=== PATIENT | male | born 1965 ===

== ENCOUNTER → 2017-12-10 | Outpatient (CLI) | payer BC ==
--- NOTE | 2017-12-10 12:44 | US ---
EXAM DESCRIPTION: Abdomen,Complete CLINICAL HISTORY: 52 years Male, R10.84 COMPARISON: None available. TECHNIQUE: Multiple transverse and longitudinal static sonographic images of the upper abdomen were obtained. FINDINGS: Visualized portions of the pancreas appear normal. The liver demonstrates increased echogenicity with no intrahepatic biliary ductal dilatation. No focal masses are identified sonographically. The gallbladder is well distended with no gross abnormality. No evidence of wall thickening or hyperemia or pericholecystic fluid. The common duct is nondilated and measures 4.3 mm. The right kidney measures 10.9 x 4.2 x 5.7 cm and the left kidney measures 11.2 x 5.8 x 5.2 cm. No hydronephrosis or perinephric fluid collections. The spleen measures 8.3 cm. The visualized abdominal aorta is nonaneurysmal and measures 2.1 cm in the proximal portion and 2.3 cm in the mid and distal portions. Two 4 mm stones are noted in the left kidney. Visualized portions of the inferior vena cava appears normal. 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 Two 4 mm stones are noted in the left kidney. Electronically signed by: Spencer Isaac MD 12/10/2017 12:43 PM CDT
== END ==
LOC: US 08:48
PROVIDERS: ATTEND Nurse Practitioner Family
DX: R10.84 Generalized abdominal pain (principal); K76.0 Fatty (change of) liver, not elsewhere classified; N20.0 Calculus of kidney

== ENCOUNTER 2019-02-07 00:03 | Emergency (ER) | payer BC ==
[2019-02-07] MEDS ORDERED: ETOMIDATE INJECTION 2 MG/ML 20ML VIAL IV ONE (00:04)
[2019-02-07] MEDS ORDERED: NITROGLYCERIN 0.4 MG 25 EA TAB SL ONE ×2 (00:07→00:38)
[2019-02-07] MEDS ORDERED: SODIUM CHLORIDE 0.9% 1000ML 1,000 ML ONE (00:08)
[2019-02-07] MEDS ORDERED: NITROGLYCERIN/D5W IV 250 ML IVS ONE (00:10)
[2019-02-07] MEDS ORDERED: SUCCINYLCHOLINE CHLORIDE 200 MG/10 ML VIAL ONE (00:13)
[2019-02-07] MEDS ORDERED: ASPIRIN TABLET 325 MG TAB ONE (00:18)
[2019-02-07] MEDS ORDERED: ASPIRIN (CHEWABLE) 81 MG TAB ONE (00:18)
[2019-02-07] MEDS ORDERED: ASPIRIN SUPP 600 MG SUP PR ONE ×2 (00:20→00:39)
[2019-02-07] MEDS ORDERED: METOPROLOL TARTRATE INJ 5 MG/5 ML VIAL IV ONE ×2 (00:23→01:51)
[2019-02-07] MEDS ORDERED: HEPARIN PREMIX 500 ML ONE (00:26)
[2019-02-07] MEDS ORDERED: HEPARIN SODIUM (PORCINE) 10,000 UNITS/ML VIAL ONE (00:30)
[2019-02-07] MEDS ORDERED: MORPHINE SULFATE INJ 10 MG/ML VIAL ONE ×2 (00:35→00:55)
[2019-02-07] MEDS ORDERED: ASPIRIN TABLET 325 MG TAB PO ONE (00:38)
[2019-02-07] MEDS ORDERED: HEPARIN PREMIX 25,000 UNITS in PREMIX BAG 1 BAG IVS ONE (00:40)
[2019-02-07] MEDS ORDERED: TENECTEPLASE 50 MG VIAL IV ONE (00:41)
[2019-02-07] MEDS ORDERED: ALTEPLASE 50 MG IVS ONE (00:43)
[2019-02-07] MEDS ORDERED: HEPARIN PREMIX 25,000 UNITS in PREMIX BAG 1 BAG IVS SCH (00:45)
[2019-02-07] MEDS ORDERED: NOREPINEPHRINE BITARTRATE 4 MG/4 ML VIAL IVPB ONE (00:46)
[2019-02-07] MEDS ORDERED: DEXTROSE 5% 250ML 250 ML ONE (00:47)
--- NOTE | 2019-02-07 00:49 | ED.PDOC ---
History of Present Illness - General Chief Complaint: Respiratory Problem Time Seen by Provider: 02/07/19 00:38 Source: patient, family Additional Information: patient is a 53-year-old male who presents to the ED in severe respiratory distress. Patient's history is unclear given the degree of respiratory distress patient is an and patient's is not a good historian. He has had shortness of breath for the past 2 days gradually getting worse. Patient denies history of CHF or OH. His indicates that he had a cardiac catheterization done approximately 6 years ago and does not have any stents and did not have her procedure from that patient denies being on blood thinner. Patient indicates he has chest pressure but is unable to quantify the amount due to his respiratory distress history is otherwise unknown. - History of Present Illness Allergies/Adverse Reactions: Allergies NO KNOWN ALLERGY Allergy (Verified 05/16/16 11:43) Home Medications: Ambulatory Orders Telmisartan-Hydrochlorothiazid [Micardis Hct 80-12.5 mg] 1 tbls PO DAILY 05/16/16 Aspirin 325 mg PO DAILY #0 tab 05/17/16 Atorvastatin Calcium [Lipitor] 40 mg PO DAILY #30 tab 05/17/16 Metoprolol Tartrate 25 mg PO BID #30 tab 05/17/16 Nitroglycerin 0.4 mg Tab [Nitrostat] 0.4 mg SL Q5MIN #1 bttl 05/17/16 Omeprazole [Prilosec Cap] 20 mg PO ACBK #30 cap 05/17/16 Thyroid 200 mcg PO DAILY 05/17/16 Review of Systems - Review of Systems Unable to Obtain Due To: condition - unable to determine due to severe respiratory distress Past Medical History (General) - Patient Medical History Hx Seizures: No Hx Stroke: No Hx Asthma: No Hx of COPD: No Hx Cardiac Disorders: No Hx Congestive Heart Failure: No Hx Pacemaker: No Hx Hypertension: No Hx Thyroid Disease: Yes Hx Diabetes: No Hx Gastroesophageal Reflux: No Hx Cancer: No Hx of HIV: No Hx Hepatitis C: No Hx MRSA: No - Vaccination History Hx Tetanus, Diphtheria Vaccination: No Hx Pneumococcal Vaccination: No - Social History Hx Tobacco Use: Yes Hx Chewing Tobacco Use: No Hx Alcohol Use: No Hx Substance Use: No Hx Substance Use Treatment: No Hx Depression: No Hx Physical Abuse: No Hx Emotional Abuse: No Hx Suspected Abuse: No Family Medical History - Family History Grandparents Family History: Unknown Physical Exam - Physical Exam General Appearance: Alert, Anxious, Obvious distress - severe, Ill Appearing, Obese Eyes, Ears, Nose, Throat Exam: PERRL/EOMI Neck: non-tender, other - Positive JVD Respiratory: respiratory distress - Severe, accessory muscle use, crackles Cardiovascular/Chest: no murmur, tachycardia, other - distant heart sounds, unable to appreciate a gallop or S3. 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 Patient was in severe respiratory distress, acutely diaphoretic, confused. staff was unable to initially obtain IV access and I placed an IO line in patient's left proximal humerus with good results. Patient's lungs sound were coarse with crackles and the presumptive diagnosis was flash pulmonary edema. Once we were able to obtain a blood pressure patient's systolic was noted to be in the 250s. 2 sublingual nitroglycerin given immediately and a nitroglycerin drip was started. EKG was obtained which showed profound ST elevation anteriorly and laterally. Rectal aspirin was given and patient was started on heparin protocol. Because cardiology is not available on site TNKase was ordered to address patient's STEMI. We ordered [facility] helicopter for emergent transport to [place] at that time. I discussed the case with supervisor fusing room Dr. West who agreed with heparin and aspirin and TNKase and he indicated that he would have the cardiac catheterization lab ready upon arrival. At this time patient is breathing much more comfortable and his blood pressure has come down considerably on the nitroglycerin drip. His pressure had bottomed out in the high 80s and the drip was stopped and pressure is now at 104 systolic. He is mentating well and is no longer in severe distress. Patient was placed on BiPAP on arrival and he continues to do well on BiPAP. His initial O2 sat on arrival was very low in the 60s according to the monitor but came up readily once patient was transitioned from facemask oxygen to BiPAP. 02/07/19 01:04 Pt remains stable at this time, his systolic is 104. Patient is unable to tolerate coming off of the BiPAP to facemask. Air transport indicates that there is a barometric sensory misfunction on the aircraft which is artificially reading low and triggering out of flight parameters. They are addressing this issue and we expect air flight transportation shortly. Patient is unable to be transported via ambulance to [facility] without being intubated; EMS crew is unable to take a patient on BiPAP. Given that patient's respiratory symptoms zhao ve markedly improved I do not want to have to intubate this gentleman if I do not need to, and we will give him a trial of CPAP. A levophed drip is at the ready in case patient should need pressor support en route. 02/07/19 01:41 Patient's blood pressure had trended down to the 70s and a liter saline drip was started and he is holding steady with a systolic of 105. A central line was successfully placed in patient's left femoral vein. I have received word that [facility] will not be able to transport patient. Will transition patient from BiPAP to CPAP which EMS indicates that they can transport on and if successful we'll transport patient now. If unsuccessful will need to intubate patient for the hour-long ambulance ride to [place]. Patient's second and third EKG show continued extreme ST segment elevation anteriorly and laterally despite tPA. His troponin is elevated. 02/07/19 01:54 Patient is doing very well on CPAP and we will now transport him via ambulance to [place]. His systolic is 124, he is awake alert and oriented 3, able to hold a conversation and feeling much better. Patient is medically stable for transfer at this time. - Results/Orders Results/Orders: 02/07/19 01:00 Nitroglycerin/D5w IV 50,000 mcg Premix Bottle 1 bottle IVS PRN Norepinephrine Bitartrate [Levophed] 4 mg Dextrose 5% 250Ml [D5W 250ml] 250 ml IVPB PRN 02/07/19 01:10 Catheter:Wu QSHIFT 02/07/19 01:11 URINALYSIS Stat Laboratory Results WBC 18.3 K/mm3 (4.8-10.8) H 02/07/19 00:37 RBC 6.49 M/mm3 (4.70-6.10) H 02/07/19 00:37 Hgb 18.6 gm/dL (14.0-18.0) H 02/07/19 00:37 Hct 56.7 % (42.0-52.0) H 02/07/19 00:37 MCV 87.3 fl (80.0-94.0) 02/07/19 00:37 MCH 28.6 pg (27.0-31.0) 02/07/19 00:37 MCHC 32.7 g/dL (33.0-37.0) L 02/07/19 00:37 RDW 14.3 % (11.5-14.5) 02/07/19 00:37 Plt Count 598 K/mm3 (130-400) H 02/07/19 00:37 MPV 8.0 fl (7.40-10.4) 02/07/19 00:37 Absolute Neuts (auto) 8.80 K/uL (1.8-6.8) H 02/07/19 00:37 Absolute Lymphs (auto) 4.40 K/uL (1.0-3.4) H 02/07/19 00:37 Absolute Monos (auto) 4.10 K/uL (0.2-0.8) H 02/07/19 00:37 Absolute Eos (auto) 0.90 K/uL (0.0-0.4) H 02/07/19 00:37 Absolute Basos (auto) 0.00 K/uL (0.0-0.1) 02/07/19 00:37 Neutrophils % 48.3 % (42.0-78.0) 02/07/19 00:37 Neutrophils % (Manual) 30.0 % (42.0-78.0) L 02/07/19 00:45 Lymphocytes % 24.1 % (20.0-50.0) 02/07/19 00:37 Lymphocytes % (Manual) 55.0 % 02/07/19 00:45 Monocytes % 22.4 % (2.0-9.0) H 02/07/19 00:37 Monocytes % (Manual) 11.0 % 02/07/19 00:45 Eosinophils % 5.2 % (1.0-5.0) H 02/07/19 00:37 Basophils % 0.0 % (0.0-2.0) 02/07/19 00:37 Band Neutrophils 3.0 % (0-2) H 02/07/19 00:45 Eosinophils 1.0 % 02/07/19 00:45 Platelet Estimate Increased (NORMAL) 02/07/19 00:45 Polychromasia 1+ 02/07/19 00:45 Anisocytosis 1+ 02/07/19 00:45 PT 9.4 SECONDS (9.0-10.9) 02/07/19 00:37 INR 0.94 (0.9-1.15) 02/07/19 00:37 PTT (SP) 27.0 SECONDS (21.8-31.6) 02/07/19 00:37 Sodium 141 mmol/L (135-145) 02/07/19 00:37 Potassium 3.0 mmol/L (3.6-5.0) L 02/07/19 00:37 Chloride 104 mmol/L (101-111) 02/07/19 00:37 Carbon Dioxide 22 mmol/L (21-31) 02/07/19 00:37 Anion Gap 18.0 (12-18) 02/07/19 00:37 BUN 13 mg/dL (7-18) 02/07/19 00:37 Creatinine 1.25 mg/dL (0.6-1.3) 02/07/19 00:37 BUN/Creatinine Ratio 10.4 (10-20) 02/07/19 00:37 Random Glucose 205 mg/dL (70-105) H 02/07/19 00:37 Serum Osmolality 287.3 mOsm/L (275-295) 02/07/19 00:37 Calcium 8.7 mg/dL (8.4-10.2) 02/07/19 00:37 Magnesium 2.4 mg/dL (1.8-2.5) 02/07/19 00:37 Creatine Kinase 377 IU/L (38-174) H* 02/07/19 00:37 CK-MB (CK-2) 7.0 ng/mL (0.0-4.4) H* 02/07/19 00:37 CK-MB (CK-2) % 1.86 % (0.0-3.5) 02/07/19 00:37 Troponin I 0.11 ng/mL (0.01-0.05) H* 02/07/19 00:37 B-Natriuretic Peptide 128.0 pg/ml (0-100) H 02/07/19 00:38 - EKG/XRAY/CT EKG: Tachy - Anterior lateral, ST elevation Procedures - Central Line Left Femoral vein Central Line Lumen: triple Central Line Procedure Prep: betadine prep Anesthesia: Lidocaine cc's of anesthesia: 4 Complications: none Central Line Post Position: sutured, good blood return Departure - Departure Clinical Impression: STEMI (ST elevation myocardial infarction) Time of Disposition: 02:01 Disposition: Transfer to Hospital Condition: Serious Departure Forms: ED Discharge - Pt. Copy, Patient Portal Self Enrollment Home Medications: Ambulatory Orders Telmisartan-Hydrochlorothiazid [Micardis Hct 80-12.5 mg] 1 tbls PO DAILY 05/16/16 Aspirin 325 mg PO DAILY #0 tab 05/17/16 Atorvastatin Calcium [Lipitor] 40 mg PO DAILY #30 tab 05/17/16 Metoprolol Tartrate 25 mg PO BID #30 tab 05/17/16 Nitroglycerin 0.4 mg Tab [Nitrostat] 0.4 mg SL Q5MIN #1 bttl 05/17/16 Omeprazole [Prilosec Cap] 20 mg PO ACBK #30 cap 05/17/16 Thyroid 200 mcg PO DAILY 05/17/16 Critical Care Note - Critical Care Note Total Time (mins): 85 Comments: Critical care time does not include separately billable procedures. Transfer to Outside Facility - Transfer Information Accepting Provider:: Dr. 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
[2019-02-07] MEDS ORDERED: MORPHINE SULFATE INJ 10 MG/ML VIAL IV ONE (00:56)
[2019-02-07] MEDS ORDERED: NITROGLYCERIN/D5W IV 50,000 MCG in PREMIX BOTTLE 1 BOTTLE IVS SCH (01:00)
[2019-02-07] MEDS ORDERED: NOREPINEPHRINE BITARTRATE 4 MG in DEXTROSE 5% 250ML 250 ML IVPB SCH ×2 (01:00→01:30)
--- NOTE | 2019-02-07 01:07 | RAD ---
EXAM DESCRIPTION: XR Chest, 1 View CLINICAL HISTORY: 53 years Male sob TECHNIQUE: One view of the chest. COMPARISON: Comparison is made to the prior examination dated 05/16/2016. FINDINGS: There are hazy confluent airspace infiltrates throughout both lungs with relative sparing of the lung apices, particularly on the left. Normal cardiomediastinal silhouette. No definite pleural effusion or pneumothorax. No acute osseous abnormality. IMPRESSION: Hazy confluent airspace infiltrates throughout the majority of both lungs, infection and/or pulmonary edema. The heart is normal in size. Electronically signed by: Chsaity Maddox MD 02/07/2019 1:06 AM CDT
[2019-02-07] MEDS ORDERED: FUROSEMIDE INJ 20 MG/2 ML VIAL ONE (01:10)
[2019-02-07] MEDS ORDERED: FUROSEMIDE INJ 40 MG/4 ML VIAL IV ONE (01:11)
[2019-02-07 01:30] VITALS: TEMP 98.1
[2019-02-07] MEDS ORDERED: HEPARIN SODIUM (PORCINE) 5,000 U/ML VIAL IV ONE (01:46)
[2019-02-07 02:35] VITALS: BP 135/94; O2SAT 96
== END 2019-02-07 02:15 | disposition short-term general hospital (02) ==
LOC: ER 00:03
DX: I21.3 ST elevation (STEMI) myocardial infarction of unspecified site (principal); R06.03 Acute respiratory distress; R07.9 Chest pain, unspecified; Z87.891 Personal history of nicotine dependence; Z79.82 Long term (current) use of aspirin; Z79.899 Other long term (current) drug therapy
CPT/HCPCS: 71045; 80048; 82550; 82553; 83880; 84484; 85025; 85610; 85730; 93005; 94660; J0330; J1644; J1940; J2060; J2270; J3101; J7030; J7060

== ENCOUNTER 2019-02-18 17:31 | Emergency (ER) | payer BC ==
[2019-02-18] MEDS ORDERED: SODIUM CHLORIDE 0.9% (FLUSH) 10 ML SYG IV PRN (18:14)
[2019-02-18] MEDS ORDERED: methylPREDNISolone SODIUM SUC 125 MG/2 ML VIAL IV ONE (18:15)
[2019-02-18] MEDS ORDERED: diphenhydrAMINE HCL 50 MG/ML VIAL IV ONE (18:17)
--- NOTE | 2019-02-18 18:27 | ED.PDOC ---
History of Present Illness - General Chief Complaint: General Stated Complaint: Itching, possible allergic reaction Time Seen by Provider: 02/18/19 18:13 - History of Present Illness Initial Comments: Pt with mi approximately 10 days ago. Pt sent to [facility] for an emergent PCI. Pt came home last pm. Pt started on Augmentin last night for a UTI. Pt noted itching after the initial dose and it worsened today a couple of hours after taking his abx today. Pt given Benadryl at home with improvement. Pt also c/o scrotal swelling and pain. Pt denies fever/chills. +Dysuria. +SOB and a feeling of choking. Pt denies cp/nausea or vomiting. Allergies/Adverse Reactions: Allergies NO KNOWN ALLERGY Allergy (Verified 05/16/16 11:43) Home Medications: Ambulatory Orders Aspirin 325 mg PO DAILY #0 tab 05/17/16 Thyroid 200 mcg PO DAILY 05/17/16 Amoxicillin 875 mg PO BID 02/18/19 Atorvastatin Calcium [Lipitor] 80 mg PO DAILY 02/18/19 Buspirone HCl 10 mg PO DAILY 02/18/19 Carvedilol 6.25 mg PO BIDFD 02/18/19 Cefdinir 300 mg PO BID 5 Days #10 capsule 02/18/19 Furosemide 20 mg PO DAILY 02/18/19 Lisinopril [Prinivil] 10 mg PO DAILY 02/18/19 Methylprednisolone [Medrol Dose Nilo] 4 mg PO DAILY 6 Days #21 tab 02/18/19 Spironolactone 25 mg PO DAILY 02/18/19 Ticagrelor [Brilinta] 90 mg PO BID 02/18/19 Review of Systems - Review of Systems Constitutional: Denies: chills, fever EENTM: States: throat swelling. Denies: mouth pain, mouth swelling Respiratory: States: short of breath. Denies: stridor, wheezing Cardiology: Denies: chest pain, palpitations Gastrointestinal/Abdominal: Denies: abdominal pain, nausea, vomiting Genitourinary: States: dysuria, frequency, pain - swelling of scrotum. Denies: hematuria Musculoskeletal: States: no symptoms reported Skin: States: rash, other - itching Neurological: States: no symptoms reported Endocrine: States: no symptoms reported Hematologic/Lymphatic: States: easy bruising All other Systems: Reviewed and Negative Past Medical History (General) - Patient Medical History Hx Seizures: No Hx Stroke: No Hx Asthma: No Hx of COPD: No Hx Cardiac Disorders: Yes - Dyslipidemia Hx Congestive Heart Failure: No Hx Pacemaker: No Hx Hypertension: Yes Hx Thyroid Disease: Yes Hx Diabetes: No Hx Gastroesophageal Reflux: No Hx Cancer: No Hx of HIV: No Hx Hepatitis C: No Hx MRSA: No Surgical History: other - Vaccination History Hx Tetanus, Diphtheria Vaccination: No Hx Influenza Vaccination: No Hx Pneumococcal Vaccination: No - Social History Hx Tobacco Use: Yes - Quit 2019 Hx Chewing Tobacco Use: No Hx Alcohol Use: No Hx Substance Use: No Hx Substance Use Treatment: No Hx Depression: No Hx Physical Abuse: No Hx Emotional Abuse: No Hx Suspected Abuse: No Family Medical History - Family History Grandparents Family History: Unknown Physical Exam - Physical Exam General Appearance: Alert, Anxious, Well Developed, Well Groomed, Well Hydrated, Well Nourished Eye Exam: bilateral normal Ears, Nose, Throat: hearing grossly normal, normal ENT inspection, normal pharynx Neck: non-tender, full range of motion, supple, normal inspection, other - No stridor Respiratory: chest non-tender, lungs clear, normal breath sounds, no respiratory distress, no accessory muscle use, respiratory distress Cardiovascular/Chest: normal peripheral pulses, regular rate, rhythm, no edema, no gallop, no JVD Peripheral Pulses: radial,right: 2+, radial,left: 2+, dorsalis pedis,right: 2+, dorsalis pedis,left: 2+, posterior tibialis,right: 2+, posterior tibialis,left: 2+ Gastrointestinal/Abdominal: normal bowel sounds, non tender, soft, no organome dez Back Exam: normal inspection, no CVA tenderness, no vertebral tenderness Extremity: normal range of motion, non-tender, normal inspection 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 Pt with slight bleeding from left groin at site of the PCI Progress - Progress Progress: 02/18/190 Pt's symptoms resolved after iv benadryl and steroids. The sob/chest tightness also went away. 02/18/19 23:02 Repeat labs show Troponin and CPK dropping over the last 3 hours. I suspect the elevated troponin/cpk were from his original CO. I believe the sob/itching is a allergy to the Augmentin. Plan d/c home on Cefdinir and steroids. I have d/w pt and family and they voice understanding and agreement with the plan of care. Todd Salazar M.D. #[id number] - Results/Orders Results/Orders: 02/18/19 18:14 IV Care:Saline Lock per Protoc QSHIFT Telemetry ONCE CARDIAC PANEL,ER Stat Sodium Chloride 0.9% (Flush) [Saline Flush Syringe] 3 ml IV PRN PRN 02/18/19 18:15 EKG STAT 02/18/19 19:15 UA [URINALYSIS] Stat 02/19/19 09:00 Pulse Ox Daily Laboratory Results - last 24 hr 02/18/19 18:14 WBC 16.6 H RBC 3.91 L Hgb 10.9 L Hct 33.0 L MCV 84.3 MCH 27.8 MCHC 33.0 RDW 14.0 MPV 7.1 L Absolute Neuts (auto) 12.20 H Absolute Lymphs (auto) 2.50 Absolute Monos (auto) 1.10 H Absolute Eos (auto) 0.60 H Absolute Basos (auto) 0.20 H Neutrophils % 73.3 Lymphocytes % 15.3 L Monocytes % 6.6 Eosinophils % 3.5 Basophils % 1.3 Sodium 133 L Potassium 3.7 Chloride 100 L Carbon Dioxide 22 Anion Gap 14.7 BUN 22 H Creatinine 1.08 BUN/Creatinine Ratio 20.4 H Random Glucose 103 Serum Osmolality 270.0 L Calcium 8.8 Magnesium 2.1 Creatine Kinase 898 H* CK-MB (CK-2) 1.8 CK-MB (CK-2) % Not Reportable Troponin I 0.36 H* 02/18/19 18:14 IV Care:Saline Lock per Protoc QSHIFT Telemetry ONCE Sodium Chloride 0.9% (Flush) [Saline Flush Syringe] 3 ml IV PRN PRN 02/18/19 18:15 EKG STAT 02/18/19 21:33 CARDIAC ENZYME GROUP Stat 02/19/19 09:00 Pulse Ox Daily Laboratory Results - last 24 hr 02/18/19 02/18/19 02/18/19 18:14 19:15 21:33 WBC 16.6 H RBC 3.91 L Hgb 10.9 L Hct 33.0 L MCV 84.3 MCH 27.8 MCHC 33.0 RDW 14.0 Plt Count 1082 H MPV 7.1 L Absolute Neuts (auto) 12.20 H Absolute Lymphs (auto) 2.50 Absolute Monos (auto) 1.10 H Absolute Eos (auto) 0.60 H Absolute Basos (auto) 0.20 H Neutrophils % 73.3 Lymphocytes % 15.3 L Monocytes % 6.6 Eosinophils % 3.5 Basophils % 1.3 PT 10.3 INR 1.03 PTT (SP) 31.5 Sodium 133 L Potassium 3.7 Chloride 100 L Carbon Dioxide 22 Anion Gap 14.7 BUN 22 H Creatinine 1.08 BUN/Creatinine Ratio 20.4 H Random Glucose 103 Serum Osmolality 270.0 L Calcium 8.8 Magnesium 2.1 Creatine Kinase 898 H* 758 H* CK-MB (CK-2) 1.8 1.7 CK-MB (CK-2) % Not Reportable Troponin I 0.36 H* 0.33 H* Urine Color Yellow Urine Appearance Clear Urine pH 5.5 Ur Specific [place] 1.020 Urine Protein 100 H Urine Glucose (UA) Negative Urine Ketones Negative Urine Blood Trace-lysed H Urine Nitrite Negative Urine Bilirubin Negative Urine Urobilinogen 0.2 Ur Leukocyte Esterase Negative Urine RBC 1-3 Urine WBC 0 Ur Epithelial Cells 0-1 Urine Bacteria Rare Hyaline Casts 0-1 Urine Mucus Trace - EKG/XRAY/CT EKG: Abnormal Q waves Comments: NSR@74bmp, NAD, LAE, lrg Q waves V1-3, septal infarct, recent, abnormal ekg Xray Comments: CXR wnl, no acute pulmonary disease. Departure - Departure Clinical Impression: Allergic reaction caused by a drug, Elevated troponin I level Time of Disposition: 23:05 Disposition: Discharge to Home or Self Care Condition: Good Departure Forms: ED Discharge - Pt. Copy, Patient Portal Self Enrollment Instructions: Adverse Drug Reactions, Adult (DC), Allergy to Penicillins, Allergy Skin Testing Prescriptions: Cefdinir 300 mg PO BID 5 Days #10 capsule Methylprednisolone [Medrol Dose Nilo] 4 mg PO DAILY 6 Days #21 tab Home Medications: Ambulatory Orders Aspirin 325 mg PO DAILY #0 tab 05/17/16 Thyroid 200 mcg PO DAILY 05/17/16 Amoxicillin 875 mg PO BID 02/18/19 Atorvastatin Calcium [Lipitor] 80 mg PO DAILY 02/18/19 Buspirone HCl 10 mg PO DAILY 02/18/19 Carvedilol 6.25 mg PO BIDFD 02/18/19 Cefdinir 300 mg PO BID 5 Days #10 capsule 02/18/19 Furosemide 20 mg PO DAILY 02/18/19 Lisinopril [Prinivil] 10 mg PO DAILY 02/18/19 Methylprednisolone [Medrol Dose Nilo] 4 mg PO DAILY 6 Days #21 tab 02/18/19 Spironolactone 25 mg PO DAILY 02/18/19 Ticagrelor [Brilinta] 90 mg PO BID 02/18/19
--- NOTE | 2019-02-18 18:34 | RAD ---
EXAM: Chest,1 View CLINICAL INDICATION: Shortness of breath COMPARISON: 02/07/2019 FINDINGS: A single view of the chest was obtained. The heart size is normal. The pulmonary vascularity is unremarkable. The lungs are clear. There is no consolidation, infiltrate, pleural effusion, or pneumothorax. IMPRESSION: No evidence of active pulmonary disease. Electronically signed by: Donnie Huang MD 02/18/2019 6:32 PM CDT
[2019-02-18 23:05] VITALS: BP 154/112; O2SAT 98
[2019-02-18 23:18] VITALS: TEMP 97.6
== END 2019-02-18 23:11 | disposition home or self-care (01) ==
LOC: ER 17:31
DX: L29.9 Pruritus, unspecified (principal); T36.0X5A Adverse effect of penicillins, initial encounter; N50.89 Other specified disorders of the male genital organs; N50.82 Scrotal pain; R79.89 Other specified abnormal findings of blood chemistry; R06.02 Shortness of breath; N39.0 Urinary tract infection, site not specified; R94.31 Abnormal electrocardiogram [ECG] [EKG]; E78.5 Hyperlipidemia, unspecified; I10 Essential (primary) hypertension; E07.9 Disorder of thyroid, unspecified; Z79.82 Long term (current) use of aspirin; Z79.899 Other long term (current) drug therapy; Z87.891 Personal history of nicotine dependence
CPT/HCPCS: 71045; 80048; 81001; 82550; 82553; 84484; 85025; 85610; 85730; 93005; J1200; J2930

== ENCOUNTER 2019-12-02 | Emergency (ER) | payer BC ==
--- NOTE | 2019-12-02 06:38 | ED.PDOC ---
History of Present Illness - General Chief Complaint: ENT Problem Stated Complaint: my nose is bleeding Time Seen by Provider: 12/02/19 06:35 Source: patient, RN notes reviewed, Vital Signs reviewed Additional Information: patient 54-year-old male patient, presents to the ER with a urinary nasal bleeding, patient is on blood thinner due to his cervical artery disease after having a heart attack has a history of hyper tension hyperlipidemia and thyroid disease, He denies any recent trauma does not any distress no evidence of airway compromise Does not smoke does not drink No history of alcohol cigarettes or drugs Daughter is translating - History of Present Illness Timing/Duration: abrupt EENT Location: nose Prearrival Treatment: squeezing nostrils Improving Factors: nothing Worsening Factors: nothing Associated Symptoms: denies symptoms Allergies/Adverse Reactions: Allergies NO KNOWN ALLERGY Allergy (Verified 05/16/16 11:43) Home Medications: Ambulatory Orders Aspirin 325 mg PO DAILY #0 tab 05/17/16 Thyroid 200 mcg PO DAILY 05/17/16 Atorvastatin Calcium [Lipitor] 80 mg PO DAILY 02/18/19 Carvedilol 6.25 mg PO BIDFD 02/18/19 Methylprednisolone [Medrol Dose Nilo] 4 mg PO DAILY 6 Days #21 tab 02/18/19 Spironolactone 25 mg PO DAILY 02/18/19 Ticagrelor [Brilinta] 90 mg PO BID 02/18/19 Allopurinol 300 mg PO 12/02/19 Levothyroxine Sodium [Euthyrox] 150 mcg PO 12/02/19 Losartan Potassium 50 mg PO 12/02/19 Review of Systems - Review of Systems Constitutional: States: no symptoms reported EENTM: States: no symptoms reported Respiratory: States: no symptoms reported Cardiology: States: no symptoms reported Gastrointestinal/Abdominal: States: no symptoms reported Genitourinary: States: no symptoms reported Musculoskeletal: States: no symptoms reported Skin: States: no symptoms reported Neurological: States: no symptoms reported Endocrine: States: no symptoms reported Hematologic/Lymphatic: States: no symptoms reported Past Medical History (General) - Patient Medical History Hx Seizures: No Hx Stroke: No Hx Asthma: No Hx of COPD: No Hx Cardiac Disorders: Yes - Dyslipidemia Hx Congestive Heart Failure: No Hx Pacemaker: No Hx Hypertension: Yes Hx Thyroid Disease: Yes Hx Diabetes: No Hx Gastroesophageal Reflux: No Hx Cancer: No Hx of HIV: No Hx Hepatitis C: No Hx MRSA: No - Vaccination History Hx Tetanus, Diphtheria Vaccination: No Hx Influenza Vaccination: No Hx Pneumococcal Vaccination: No - Social History Hx Tobacco Use: Yes - Quit 2019 Hx Chewing Tobacco Use: No Hx Alcohol Use: No Hx Substance Use: No Hx Substance Use Treatment: No Hx Depression: No Hx Physical Abuse: No Hx Emotional Abuse: No Hx Suspected Abuse: No Family Medical History - Family History Grandparents Family History: Unknown Physical Exam - Physical Exam General Appearance: Alert, Well Developed, Well Groomed, Well Hydrated, Well Nourished Eye Exam: bilateral normal Ear Exam: bilateral ear: auricle normal Nasal Exam: other - Active bleeding coming from the right nostril Neck: non-tender Cardiovascular/Respiratory: regular rate, rhythm, no M/R/G, normal peripheral pulses, no JVD, normal breath sounds Abdominal Exam: non-tender, no organomegaly 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 Patient will be referred to a early breastfeeding care specialist, I told the daughter and the patient that he needs to have the Rhino Rocket inserted for at least 48 hours no more than because he went to minimize the risk of infection Patient was told to avoid blowing off his nose12/02/19 06:4 12/02/19 06:48 I suspect the patient blood pressure was the cause of the nosebleed, patient is on Brilinta which we know does not affect PT and INR Procedures - Additional Procedures Progress: A Rhino Rocket 7.5 cm mostly centered in the right nostril with any without any complications, patient tolerated the procedure well, and the bleeding stopped Departure - Departure Clinical Impression: Epistaxis Disposition: Discharge to Home or Self Care Condition: Fair Departure Forms: ED Discharge - Pt. Copy, Patient Portal Self Enrollment Instructions: Nosebleeds (DC) Referrals: SHIRA RO IV, AGER TENDER [Primary Care Provider] - 1-2 Weeks Home Medications: Ambulatory Orders Aspirin 325 mg PO DAILY #0 tab 05/17/16 Thyroid 200 mcg PO DAILY 05/17/16 Atorvastatin Calcium [Lipitor] 80 mg PO DAILY 02/18/19 Carvedilol 6.25 mg PO BIDFD 02/18/19 Methylprednisolone [Medrol Dose Nilo] 4 mg PO DAILY 6 Days #21 tab 02/18/19 Spironolactone 25 mg PO DAILY 02/18/19 Ticagrelor [Brilinta] 90 mg PO BID 02/18/19 Allopurinol 300 mg PO 12/02/19 Levothyroxine Sodium [Euthyrox] 150 mcg PO 12/02/19 Losartan Potassium 50 mg PO 12/02/19 Additional Instructions: Will provide your information Follow-up with ENT
== END 2019-12-02 06:54 | disposition home or self-care (01) ==

== ENCOUNTER 2020-03-03 06:04 | Emergency (ER) | payer BC ==
[2020-03-03] MEDS ORDERED: OXYMETAZOLINE NASAL SPRAY 15 ML BTTL ONE (06:29)
[2020-03-03] MEDS ORDERED: OXYMETAZOLINE NASAL SPRAY 15 ML BTTL BNAS PRN (06:32)
--- NOTE | 2020-03-03 06:38 | ED.PDOC ---
History of Present Illness - General Source: patient, RN notes reviewed, Vital Signs reviewed, family - History of Present Illness Initial Comments: This is a 54-year-old male with history of CAD, on Brilinta, presenting to the emergency department for nosebleed that began around 5:15 this morning. He also had an episode of bleeding yesterday that he was able to control with pressure. He was seen in the emergency room in November, for nosebleeds and had to have his nose packed at that time. There have been no new changes in his medications. No injury to the nose. <Carlitos Hood - Last Filed: 03/03/20 07:04> <Devika Rivero - Last Filed: 03/03/20 07:48> - General Chief Complaint: ENT Problem Stated Complaint: nose bleeding since 514 Time Seen by Provider: 03/03/20 06:32 - History of Present Illness Allergies/Adverse Reactions: Allergies NO KNOWN ALLERGY Allergy (Verified 03/03/20 06:16) Home Medications: Ambulatory Orders Aspirin 325 mg PO DAILY #0 tab 05/17/16 Thyroid 200 mcg PO DAILY 05/17/16 Atorvastatin Calcium [Lipitor] 80 mg PO DAILY 02/18/19 Carvedilol 6.25 mg PO BIDFD 02/18/19 Methylprednisolone [Medrol Dose Nilo] 4 mg PO DAILY 6 Days #21 tab 02/18/19 Spironolactone 25 mg PO DAILY 02/18/19 Ticagrelor [Brilinta] 90 mg PO BID 02/18/19 Allopurinol 300 mg PO 12/02/19 Levothyroxine Sodium [Euthyrox] 150 mcg PO 12/02/19 Losartan Potassium 50 mg PO 12/02/19 Review of Systems - Review of Systems Constitutional: Denies: chills, fever EENTM: States: other - Nosebleed right naris. Denies: eye pain, tearing, ear pain, ear discharge, nose congestion, throat pain, mouth pain Respiratory: Denies: cough, short of breath Cardiology: Denies: chest pain, edema Gastrointestinal/Abdominal: Denies: abdominal pain, diarrhea, nausea, vomiting Skin: Denies: lesions, rash <Carlitos Hood - Last Filed: 03/03/20 07:04> Past Medical History (General) - Patient Medical History Hx Seizures: No Hx Stroke: No Hx Dementia: No Hx Asthma: No Hx of COPD: No Hx Cardiac Disorders: Yes - Dyslipidemia, hx [place], cardiac stents Hx Congestive Heart Failure: No Hx Pacemaker: No Hx Hypertension: Yes Hx Thyroid Disease: Yes Hx Diabetes: No Hx Gastroesophageal Reflux: No Hx Renal Disease: No Hx Cancer: No Hx of HIV: No Hx Hepatitis C: No Hx MRSA: No Surgical History: noncontributory - Vaccination History Hx Tetanus, Diphtheria Vaccination: No Hx Influenza Vaccination: No Hx Pneumococcal Vaccination: No - Social History Hx Tobacco Use: Yes - Quit 2019 Hx Chewing Tobacco Use: No Hx Alcohol Use: No Hx Substance Use: No Hx Substance Use Treatment: No Hx Depression: No Hx Physical Abuse: No Hx Emotional Abuse: No Hx Suspected Abuse: No <SanaCarlitos - Last Filed: 03/03/20 07:04> Family Medical History - Family History Grandparents Family History: Unknown <Carlitos Hood - Last Filed: 03/03/20 07:04> Physical Exam - Physical Exam General Appearance: Alert, Comfortable Eye Exam: bilateral normal Ear Exam: bilateral ear: TM normal Nasal Exam: dried blood - Right naris Throat Exam: normal mouth inspection, pharynx normal Neck: non-tender, full range of motion Cardiovascular/Respiratory: regular rate, rhythm, no M/R/G, normal peripheral pulses Abdominal Exam: non-tender Neurologic: no motor/sensory deficits, alert, normal mood/affect, oriented x 3 Skin Exam: normal color, warm/dry <SanaCarlitos - Last Filed: 03/03/20 07:04> Progress - Progress Progress: 03/03/20 07:04 History, physical discussed with Dr. Rivero. She will assume care from this time forward. <SanaCarlitos - Last Filed: 03/03/20 07:04> - Results/Orders Results/Orders: 03/03/20 06:30 EKG STAT 03/03/20 06:32 Oxymetazoline Nasal [place] [Afrin Nasal [place]] 2 spray BNAS BID PRN Laboratory Results WBC 7.9 K/mm3 (4.8-10.8) 03/03/20 06:22 RBC 5.30 M/mm3 (4.70-6.10) 03/03/20 06:22 Hgb 15.7 gm/dL (14.0-18.0) 03/03/20 06:22 Hct 45.2 % (42.0-52.0) 03/03/20 06:22 MCV 85.3 fl (80.0-94.0) 03/03/20 06:22 MCH 29.7 pg (27.0-31.0) 03/03/20 06:22 MCHC 34.8 g/dL (33.0-37.0) 03/03/20 06:22 RDW 14.5 % (11.5-14.5) 03/03/20 06:22 Plt Count 354 K/mm3 (130-400) 03/03/20 06:22 MPV 6.8 fl (7.40-10.4) L 03/03/20 06:22 Absolute Neuts (auto) 5.20 K/uL (1.8-6.8) 03/03/20 06:22 Absolute Lymphs (auto) 1.80 K/uL (1.0-3.4) 03/03/20 06:22 Absolute Monos (auto) 0.70 K/uL (0.2-0.8) 03/03/20 06:22 Absolute Eos (auto) 0.10 K/uL (0.0-0.4) 03/03/20 06:22 Absolute Basos (auto) 0.10 K/uL (0.0-0.1) 03/03/20 06:22 Neutrophils % 65.2 % (42.0-78.0) 03/03/20 06: Lymphocytes % 23.2 % (20.0-50.0) 03/03/20 06:22 Monocytes % 8.8 % (2.0-9.0) 03/03/20 06:22 Eosinophils % 1.8 % (1.0-5.0) 03/03/20 06:22 Basophils % 1.0 % (0.0-2.0) 03/03/20 06:22 PT 9.6 SECONDS (9.0-10.9) 03/03/20 06:22 INR < 1.00 (0.9-1.15) 03/03/20 06:22 PTT (SP) 26.4 SECONDS (21.8-31.6) 03/03/20 06:22 Sodium 136 mmol/L (135-145) 03/03/20 06:22 Potassium 4.3 mmol/L (3.6-5.0) 03/03/20 06:22 Chloride 105 mmol/L (101-111) 03/03/20 06:22 Carbon Dioxide 22 mmol/L (21-31) 03/03/20 06:22 Anion Gap 13.3 (12-18) 03/03/20 06:22 BUN 18 mg/dL (7-18) 03/03/20 06:22 Creatinine 0.90 mg/dL (0.6-1.3) 03/03/20 06:22 BUN/Creatinine Ratio 20.0 (10-20) 03/03/20 06:22 Random Glucose 116 mg/dL (70-105) H 03/03/20 06:22 Serum Osmolality 274.8 mOsm/L (275-295) L 03/03/20 06:22 Calcium 9.0 mg/dL (8.4-10.2) 03/03/20 06:22 Total Bilirubin 1.3 mg/dL (0.2-1.0) H 03/03/20 06:22 AST 23 IU/L (10-42) 03/03/20 06:22 ALT 24 IU/L (10-60) 03/03/20 06:22 Alkaline Phosphatase 113 IU/L (42-121) 03/03/20 06:22 Serum Total Protein 7.5 gm/dL (6.4-8.2) 03/03/20 06:22 Albumin 4.3 g/dl (3.2-5.5) 03/03/20 06:22 Globulin 3.2 gm/dL (2.3-3.5) 03/03/20 06:22 Albumin/Globulin Ratio 1.3 (1.1-1.9) 03/03/20 06:22 Patient resting comfortably. VSS, txa in nose aprx 20 minutes, still some oozing when removed. A small piece of surgicel was placed. EKG ordered by prior physician showed HR 78 NSR, nonspecific st/t wave changes, no acute ischemia. compared to 02/08/19. The data reviewed when caring for this patient included: nurse notes, prior records, etc. The history and assessments from nurses notes were reviewed and considered, and the patient's home medication list was also reviewed and considered. My assessment and the results of testing completed here in the ED were discussed with the patient/family. All questions were answered, and they express understanding of my assessment and the plan. They have been instructed to return if their symptoms worsen, and have been asked to follow up with their primary care physician to recheck today's presenting complaint. return precautions given. Patient was discharged home in stable condition. Devika Rivero DO #[id number] <Devika Rivero - Last Filed: 03/03/20 07:48> Departure <Carlitos Hood - Last Filed: 03/03/20 07:04> - Departure Time of Disposition: 07:41 <Devika Rivero - Last Filed: 03/03/20 07:48> - Departure Clinical Impression: Epistaxis Disposition: Discharge to Home or Self Care Departure Forms: ED Discharge - Pt. Copy, Patient Portal Self Enrollment Instructions: DI for Ear Pain-Adult, Nosebleeds (DC) Referrals: SHIRA RO IV, PACKAGE DYE STAND LOADER [Primary Care Provider] - 1 Week Home Medications: Ambulatory Orders Aspirin 325 mg PO DAILY #0 tab 05/17/16 Thyroid 200 mcg PO DAILY 05/17/16 Atorvastatin Calcium [Lipitor] 80 mg PO DAILY 02/18/19 Carvedilol 6.25 mg PO BIDFD 02/18/19 Methylprednisolone [Medrol Dose Nilo] 4 mg PO DAILY 6 Days #21 tab 02/18/19 Spironolactone 25 mg PO DAILY 02/18/19 Ticagrelor [Brilinta] 90 mg PO BID 02/18/19 Allopurinol 300 mg PO 12/02/19 Levothyroxine Sodium [Euthyrox] 150 mcg PO 12/02/19 Losartan Potassium 50 mg PO 12/02/19
[2020-03-03] MEDS ORDERED: TRANEXAMIC ACID 1,000 MG/10 ML VIAL INJ ONE (06:46)
[2020-03-03 07:57] VITALS: BP 140/94; TEMP 96.7; O2SAT 95
== END 2020-03-03 07:45 | disposition home or self-care (01) ==
LOC: ER 06:04
DX: R04.0 Epistaxis (principal); I25.10 Atherosclerotic heart disease of native coronary artery without angina pectoris; I25.2 Old myocardial infarction; E78.5 Hyperlipidemia, unspecified; I10 Essential (primary) hypertension; E07.9 Disorder of thyroid, unspecified; Z95.5 Presence of coronary angioplasty implant and graft; Z79.899 Other long term (current) drug therapy; Z79.82 Long term (current) use of aspirin; Z87.891 Personal history of nicotine dependence